=== PATIENT | male | born 1985 | race Caucasian/White ===

== ENCOUNTER 2021-07-25 03:57 | Inpatient (IN) ==
[2021-07-25] MEDS ORDERED: KETOROLAC TROMETHAMINE 15 MG/ML VIAL IV STA (04:14)
[2021-07-25] MEDS ORDERED: ONDANSETRON INJ 2 MG/ML 2 ML VIAL IV STA (04:14)
[2021-07-25] MEDS ORDERED: HYDROmorphone INJ 0.5 MG/0.5 ML SYR IV STA ×3 (04:14→06:50)
[2021-07-25] MEDS ORDERED: SODIUM CHLORIDE 0.9% 1000ML 1,000 ML IV STA (04:14)
--- NOTE | 2021-07-25 04:29 | Emergency Department Note ---
Impression & Plan Hydronephrosis with renal and ureteral calculus obstruction The case was discussed with the [facility]ist and they will evaluate for further management ED Provider Note NAME: JITENDRA CHISHOLM JR AGE: 36 SEX: M ARRIVES VIA: Walk-In INFORMANT: Patient ED PROVIDER(S): Deepthi Sahni DO CHIEF COMPLAINT: Right flank pain PLAN: Disposition: Evaluated by the [facility]ist Condition: Stable MEDICAL DECISION MAKING: This is a 36-year-old male patient with a history of kidney stones who presents to the emergency department with a sudden onset of right flank pain that radia celine into his groin. The patient began to vomit. Urinalysis was positive for blood. The patient went for CT scan of the abdomen/pelvis. This revealed a 3 mm right proximal ureteral stone with some a ssociated hydronephrosis. The patient was dosed with multiple doses of IV Dilaudid and Toradol along with IV Zofran. He received IV normal saline solution but the patient's pain persisted. I discussed the case with the [facility]ist service and they will evaluate for further management. Triage Nursing notes reviewed and agree with them. Additional history obtained from is at the bedside Prior medical records reviewed Vital Signs: reviewed and remarkable for hypertension Differential diagnosis: Ureteral colic; obstructive uropathy ER treatment provided: IV Dilaudid, IV Toradol, IV Zofran, IV normal saline Diagnostics interpreted by me: Laboratory studies: See below Imaging studies: As per stat read CT abdomen pelvis without contrast: Lung bases are clear. Heart unremarkable and liver intact. Gallbladder removed. Pancreas, spleen and adrenals are intact. Left kidney faint punctate nonobstructing stone. Right kidney punctate nonobstructing stone. Mild right hydronephrosis and proximal ureter secondary to a 3 mm stone in the proximal ureter. Bladder intact. Bowel loops are normal. Normal appendix. No adenopathy free fluid or free air. No acute findings in the bones. Impression mild right hydronephrosis and proximal ureter secondary to a proximal right ureteral stone 3 mm stone. Bilateral high nephrolithiasis HPI: 36/M arrives for evaluation of right flank pain. Patient awoke from sleep at 1:50 PM with severe right flank pain and nausea. The patient noted some symptoms earlier in the day that suggest that he may be suffering from a kidney stone. He does have a history of this. Patient did vomit multiple times on the way here to the hospital. ROS: See above HPI for pertinent positives & negatives. A total of 10 systems reviewed and were otherwise negative. PAST MEDICAL HISTORY:See Below PAST SURGICAL HISTORY:See Below FAMILY HISTORY:See Below SOCIAL HISTORY:See Below HOME MEDICATIONS:See list ALLERGIES:See list VITALS:See Below PHYSICAL EXAMINATION: HEENT: Head - normocephalic and atraumatic. Pupils are equal, round, and reactive to light. Extraocular eye muscles are intact, and sclera are anicteric. Nose - moist nasal mucosa without discharge. Mouth - moist buccal mucosa. Oropharynx is nonerythematous and there is no tonsillar exudate or edema noted. Neck: Supple; no cervical lymphadenopathy noted Heart: Regular rate and rhythm. There is a normal S1 and S2 with no murmurs, clicks, or gallops appreciated. Lungs: Clear to auscultation bilaterally with no wheezes, rales, or rhonchi. Abdomen: Soft, completely nontender, nondistended, with good bowel sounds. There are no palpable pulsatile masses or hepatosplenomegaly. There is no guarding, rigidity, or rebound noted. Extremities: No evidence of cyanosis, clubbing, or edema. There are easily palpable peripheral pulses. Skin: warm and dry with good turgor and no rashes. ED COURSE: Times/Reassessments: 0405: Patient was evaluated in room B 10. A complete history and physical was performed. An IV lock was initiated and labs were drawn as above. He was given 30 mg of IV Toradol, 4 mg of IV Zofran and 1 mg of IV Dilaudid for his pain. He will go for CT scan of the abdomen pelvis. The patient had persistent pain received a second dose of IV Dilaudid. Reviewed the results of the CT and laboratory studies with the patient and his . The patient's pain continued. He received additional doses of IV Toradol and IV Dilaudid. The patient's pain persisted and I discussed the case with the [facility] for further inpatient care. Deepthi Sahni DO Past Med/Surg History Medical History (Updated 07/25/21 @ 06:12 by Deepthi Sahni DO) Anxiety GERD (gastroesophageal reflux disease) Hyperlipidemia IBS (irritable bowel syndrome) Insomnia Kidney stone Lactose intolerance Migraine Teeth grinding Trigeminal neuralgia LEFT SIDE OF FACE Surgical History H/O knee surgery LEFT KNEE History of cholecystectomy History of colonoscopy History of cystoscopy STENT PLACED History of esophagogastroduodenoscopy (EGD) History of lithotripsy S/P LASIK surgery of both eyes [place] teeth removed Family History Mother Family history of diabetes mellitus Grandfather (Paternal) Family history of diabetes mellitus Family history of esophageal cancer Social History Smoking Status: Never smoker Tobacco Type: Smokeless Tobacco (Dip or Chew) Second Hand Exposure: Yes (RARE EXPOSURE); Hx Alcohol Use: No Hx Substance Use: No Preferred Language: Samoan Communication Ability: Effective Checker In Required: No Beliefs That Will Affect Care: None Current Living Situation: Family Feels Safe at Home: Yes Assistive Devices: None Allergies Allergies Allergy/AdvReac Type Severity Reaction Status Date / Time Penicillins Allergy Intermediate HIVES Verified 01/04/20 22:28 milk AdvReac Intermediate intolerance Verified 01/04/20 22:28 codeine AdvReac Mild N/V Verified 01/04/20 22:28 Home Meds Home Medications Medication Instructions Recorded Confirmed omeprazole 20 mg capsule,delayed 20 mg PO QAM 10/01/18 01/04/20 release hdokwvy-jgisqadvlvoho-ecweijad 250 2 tab PO Q6H PRN 05/05/19 01/04/20 mg-250 mg-65 mg tablet (Excedrin Extra Strength) Previous Rx's Medication Instructions Recorded erythromycin 5 mg/gram (0.5 %) eye 1 appln OPR Q6H #3.5 gm 01/05/20 ointment oxycodone-acetaminophen 5 mg-325 1 tab PO TID PRN #14 tab 03/31/20 mg tablet (Percocet) tamsulosin 0.4 mg capsule (Flomax) 0.4 mg PO HS #90 cap 05/05/21 Results & Data (ED) Vital Signs Vital Signs - 24 hr 07/25/21 03:58 07/25/21 04:32 07/25/21 05:00 Temperature 36.4 C L Temperature Source Oral Pulse Rate 59 L 48 L 52 L Pulse Rate from SpO2 Sensor 50 L 52 L Respiratory Rate 20 7 L 19 Respiratory Effort / Characteristics Non-Labored Spontaneous Respiratory Depth Normal Respiratory Pattern Regular Blood Pressure 139/103 H 138/85 134/87 Blood Pressure Mean 115 102 102 Blood Pressure Position Sitting Pulse Oximetry 97 95 92 Oxygen Delivery Method Room Air Room Air Room Air Sepsis Recent Fever Within 48 Hours No Sepsis New/Unexplained Change in Mental Status No Sepsis Action Taken by Nursing No Action Required Laboratory Data Result diagrams: 07/25/21 04:20 07/25/21 04:20 Lab Results 07/25/21 07/25/21 07/25/21 Range/Units 04:20 04:20 04:20 WBC 10.98 H (4.8-10.8) K/uL RBC 4.99 (4.7-6.1) M/uL Hgb 15.9 (14.0-18.0) g/dL Hct 46.1 (42-52) % MCV 92.4 (80-100) fL MCH 31.9 (25-34) pg MCHC 34.5 (32-36) g/dL RDW Std Deviation 45.7 (36.4-46.3) fL RDW Coeff of Lien 13.4 (11.5-14.5) % Plt Count 225 (130-400) K/uL MPV 10.8 H (7.4-10.4) fL Immature Gran % (Auto) 0.1 % Neut % (Auto) 78.3 % Lymph % (Auto) 14.7 % [place] % (Auto) 6.4 % Eos % (Auto) 0.2 % Baso % (Auto) 0.3 % Neut # (Auto) 8.61 H (1.4-6.5) K/uL Lymph # (Auto) 1.61 (1.2-3.4) K/uL [place] # (Auto) 0.70 H (0.11-0.59) K/uL Eos # (Auto) 0.02 (0-0.5) K/uL Baso # (Auto) 0.03 (0-0.2) K/uL Immature Gran # (Auto) 0.01 (0.00-0.02) K/uL Sodium 139 (136-145) mmol/L Potassium 4.0 (3.5-5.1) mmol/L Chloride 110 H (98-107) mmol/L Carbon Dioxide 21 (21-32) mmol/L Anion Gap 8.0 (3-11) BUN 22 H (7-18) mg/dl Creatinine 1.25 (0.6-1.4) mg/dl Est Cr Clr Drug Dosing 105.6 ml/min Est GFR ( Amer) 84.1 ml/min Est GFR (Non-Af Amer) 72.6 ml/min BUN/Creatinine Ratio 17.8 (10-20) Glucose 120 H (70-99) mg/dl Calcium 9.4 (8.5-10.1) mg/dl Total Bilirubin 0.5 (0.2-1) mg/dl AST 17 (15-37) U/L ALT 38 (12-78) Alkaline Phosphatase 108 D (45-117) U/L Total Protein 7.9 (6.4-8.2) gm/dl Albumin 4.1 (3.4-5.0) gm/dl Globulin 3.8 (2.5-4.0) gm/dl Albumin/Globulin Ratio 1.1 (0.9-2) Lipase 129 (73-393) U/L Urine Color [place] Urine Appearance Cloudy A (Clear) Urine pH 5.0 (4.5-7.5) Ur Specific [place] 1.031 H (1.000-1.030) Urine Protein 2+ H (Negative) Urine Glucose (UA) Negative (Negative) Urine Ketones Negative (Negative) Urine Blood 3+ H (Negative) Urine Nitrite Negative (Negative) Urine Bilirubin Negative (Negative) Urine Urobilinogen Negative (Negative) Ur Leukocyte Esterase Trace H (Negative) Urine WBC (Auto) 1-5 (0-5) /hpf Urine RBC (Auto) >30 H (0-4) /hpf U Hyaline Cast (Auto) 1-5 (0-5) /lpf U Epithel Cells (Auto) 5-10 H (0-5) /lpf Urine Bacteria (Auto) Negative (Negative) Administered Medications Discontinued Medications Hydromorphone HCl (Hydromorphone Inj 0.5 Mg/0.5 Ml Syr) 1 mg IV NOW STA Stop: 07/25/21 04:15 Last Admin: 07/25/21 04:23 Dose: 1 mg Documented by: [id number] Hydromorphone HCl (Hydromorphone Inj 0.5 Mg/0.5 Ml Syr) 0.5 mg IV NOW STA Stop: 07/25/21 05:27 Last Admin: 07/25/21 05:41 Dose: 0.5 mg Documented by: [id number] Sodium Chloride (Nss 1000ml) 1,000 mls @ 999 mls/hr IV .Q1H1M STA Stop: 07/25/21 05:14 Last Infusion: 07/25/21 05:37 Dose: 0 mls/hr Documented by: [id number] Admin: 07/25/21 04:36 Dose: 999 mls/hr Documented by: [id number] Ketorolac Tromethamine (Ketorolac Tromethamine 15 Mg/Ml Vial) 30 mg IV NOW STA Stop: 07/25/21 04:15 Last Admin: 07/25/21 04:20 Dose: 30 mg Documented by: [id number] Ketorolac Tromethamine (Ketorolac 30 Mg/Ml Vial) 30 mg IV NOW ONE Stop: 07/25/21 06:18 Last Admin: 07/25/21 06:27 Dose: 30 mg Documented by: [id number] Ondansetron HCl (Ondansetron Inj 2 Mg/Ml 2 Ml Vial) 4 mg IV NOW STA Stop: 07/25/21 04:15 Last Admin: 07/25/21 04:20 Dose: 4 mg Documented by: [id number] Discharge Plan Visit Data Chief Complaint: Flank Pain Stated Complaint: RT SIDE KIDNEY PAIN, VOMITING ED Provider: Deepthi Sahni Discharge Problem: Hydronephrosis with renal and ureteral calculus obstruction Forms Stand Alone Forms: [facility] Prescriptions Prescriptions: No Action oxycodone-acetaminophen [Percocet] 5-325 mg tablet 1 tab PO TID PRN (Reason: pain) Qty: 14 RF: 0 tamsulosin [Flomax] 0.4 mg capsule 0.4 mg PO HS Qty: 90 RF: 0 erythromycin 5 mg/gram (0.5 %) ointment 1 appln OPR Q6H Qty: 3.5 RF: 0 omeprazole 20 mg capsule,delayed release(DR/EC) 20 mg PO QAM RF: 0 Excedrin Extra Strength 250-250-65 mg Tablet 2 tab PO Q6H PRN (Reason: Pain) RF: 0 Referrals Referrals: Mp Gerardo MD [Primary Care Provider] -
[2021-07-25 04:36] LABS: Basophils # (auto) 0.03 K/uL (0-0.2); Basophils % (auto) 0.3 %; Eosinophils # (auto) 0.02 K/uL (0-0.5); Eosinophils % (auto) 0.2 %; Hematocrit (blood only) 46.1 % (42-52); Hemoglobin 15.9 g/dL (14.0-18.0); Immature Granulocytes # (auto) 0.01 K/uL (0.00-0.02); Immature Granulocytes % (auto) 0.1 %; Lymphocytes # (auto) 1.61 K/uL (1.2-3.4); Lymphocytes % (auto) 14.7 %; Mean Corpuscular Hemoglobin 31.9 pg (25-34); Mean Corpuscular Hgb Conc 34.5 g/dL (32-36); Mean Corpuscular Volume 92.4 fL (80-100); Mean Platelet Volume 10.8 fL (7.4-10.4); Monocytes % (auto) 6.4 %; Neutrophils # (auto) 8.61 K/uL (1.4-6.5); Neutrophils % (auto) 78.3 %; Platelet Count 225 K/uL (130-400); RDW Coefficient of Variation 13.4 % (11.5-14.5); RDW Standard Deviation 45.7 fL (36.4-46.3); Red Blood Count 4.99 M/uL (4.7-6.1); White Blood Count 10.98 K/uL (4.8-10.8)
[2021-07-25 04:48] LABS: Appearance Urine Cloudy (Clear); Bacteria Urine Automated Negative (Negative); Bilirubin Urine Negative (Negative); Blood Urine 3+ (Negative); Color Urine Orange; Glucose Urine UA Negative (Negative); Ketones Urine Negative (Negative); Leukocyte Esterase Urine Trace (Negative); Nitrite Urine Negative (Negative); Protein Urine 2+ (Negative); RBC Urine Automated >30 /hpf (0-4); Specific Gravity Urine 1.031 (1.000-1.030); Urobilinogen Urine Negative (Negative)
[2021-07-25 04:53] LABS: Albumin Level 4.1 gm/dl (3.4-5.0); BUN Creatinine Ratio 17.8 (10-20); Calcium 9.4 mg/dl (8.5-10.1); Creatinine Clr Calc Pharmacy 105.6 ml/min; Est GFR (African American) 84.1 ml/min; Est GFR (Non-African American) 72.6 ml/min
[2021-07-25 04:55] LABS: Albumin Globulin Ratio 1.1 (0.9-2); Bilirubin,Total 0.5 mg/dl (0.2-1); Globulin 3.8 gm/dl (2.5-4.0); Total Protein 7.9 gm/dl (6.4-8.2)
[2021-07-25] MEDS ORDERED: KETOROLAC 30 MG/ML VIAL IV ONE (06:17)
[2021-07-25] MEDS: SODIUM CHLORIDE 0.9% 500 ML IV SCH ×2 (07:24→12:22)
--- NOTE | 2021-07-25 08:14 | CT Scan Report ---
CT SCAN OF THE ABDOMEN AND PELVIS WITHOUT IV CONTRAST CLINICAL HISTORY: Right flank pain. COMPARISON STUDY: Abdominal CT dated 04/20/2021. TECHNIQUE: CT scan of the abdomen and pelvis is performed from the lung bases to the proximal femora. Images are reviewed in the axial, sagittal, and coronal planes. IV contrast was not administered for this examination. A dose lowering technique was utilized adhering to the principles of ALARA. CT DOSE: 1623.61 mGy.cm FINDINGS: Lung bases: The heart is normal in size and without pericardial effusion. The lung bases are clear no ting dependent atelectasis. There is a tiny hiatal hernia. Liver: The unenhanced liver is normal in size, contour, and attenuation. There is no intrahepatic bonny iary ductal dilatation. Gallbladder: Surgically absent noting clips in the gallbladder fossa. Spleen: Normal in size and attenuation. Pancreas: Unremarkable. Adrenal glands: Unremarkable. Kidneys: The unenhanced kidneys are normal in size. There is a 6 mm obstructing calculus in the right proximal ureter at the level of L3 seen on axial image #261. This causes mild to moderate right hydr oureteronephrosis. There are 2 additional nonobstructing right renal calculi which measure up to 3 mm . There are least 4 punctate nonobstructing left renal calculi which measure up to 2 mm. There is no left-sided hydronephrosis. There is no evidence of contour deforming renal mass lesion. Abdominal vasculature: The abdominal aorta is normal in course and caliber. Bowel: There is no bowel obstruction. The appendix is well-visualized and normal. Peritoneum: There is no intraperitoneal free air or abdominal ascites. There is a fat-containing umbi lical hernia. Lymphadenopathy: None. Pelvic viscera: The prostate gland is diminutive and heterogeneous. The bladder is decompressed and c annot be evaluated. Skeletal structures: No lytic or blastic lesions are seen. IMPRESSION: 1. There is a 6 mm obstructing calculus in the right proximal ureter. This causes mild to moderate ri ght hydroureteronephrosis. 2. Additional nonobstructing renal calculi are seen bilaterally. 3. Additional findings as above. ACT 112: Negative or not required by law. Electronically signed by: River Reece M.D. 07/25/2021 8:13 AM
--- NOTE | 2021-07-25 08:24 | Urology Consultation ---
Date of Consultation July 25, 2021 Assessment & Plan (1) Hydronephrosis with renal and ureteral calculus obstruction: (2) Renal colic: 36yo M admitted with intractable right flank pain secondary to a 6mm proximal right ureteral stone with hydronephrosis - Plan of care reviewed with Dr. Muir, urologist intervention teacher. - Patient afebrile, nontoxic, lab work reviewed - creatinine 1.25, WBC 10.98 - CTAP reviewed and notable for a 6 mm obstructing calculus in the right proximal ureter causing mild to moderate right hydroureteronephrosis. - UA on admission w/o evidence of infection - Discussed options for acute stone management with cystoscopy and stent placement. Discussed outpatient options for conservative measures with max expulsion medical therapy. Discussed possible outpatient ESWL, KUB ordered. Risks/benefits of all procedures discussed. - Given his intractable right flank pain in the context of an obstructing 6mm proximal right ureteral stone, will proceed with OR for cystoscopy, right retrograde pyelogram and right stent placement. - Keep NPO for procedure. - Risks and benefits to be reviewed with patient by Dr. Muir. OR notified. - Preoperative chest xray and EKG ordered. - Covid testing negative. - Will cover with IV Ciprofloxacin preoperatively. - Continue supportive care and pain management per primary service. - Will continue to follow. History of Present Illness Reason for Consultation: ureteral stone History of Present Illness 36yo M with a past medical history including nephrolithiasis, GERD, insomnia, knee surgery, cholecystectomy admitted with intractable right flank pain secondary to a 6mm proximal right ureteral stone with hydronephrosis. Pt presented to [facility] with complaints of sudden onset of right flank pain with associated nausea and vomiting. He states over the past 2 to 3 days he felt the sensation he tends to get prior to having a stone and therefore started taking flomax for the past 2-3 days. Last evening he developed severe right flank pain radiating to his right testicle. He had 2-3 episodes of vomiting in route to ER. On presentation, he was afebrile and remained hemodynamically stable. Lab work notable for mild leukocytosis at 10.98k, mild elevation of creatinine from baseline 1.25, and urinalysis consistent with microscopic hematuria, proteinuria, trace leukocyte esterase, negative nitrite, and negative bacteria. CT abdomen pelvis revealed a 6 mm obstructing calculus in the right proximal ureter resulting in mild to moderate right hydronephrosis. He received IVF and IV analgesia while in ED. Our service is consulted for right ureteral stone. CT abdomen pelvis IMPRESSION: 1. There is a 6 mm obstructing calculus in the right proximal ureter. This causes mild to moderate right hydroureteronephrosis. 2. Additional nonobstructing renal calculi are seen bilaterally. 3. Additional findings as above. Patient is known to the [facility] urology for history of stones with surgical intervention including ESWL and ureteroscopy in the past. Pt reports tolerating a ureteral stent in the past with minimal bother. Patient examined at bedside in the ED. Awake and alert. Pleasant. No acute distress. He reports right flank pain radiating to his right testicle, currently rates pain at 6/10. Denies fevers or chills. Some nausea and had 2-3 episodes of vomiting in route to the ER. Reports dysuria. Denies hematuria. Feels he is emptying his bladder, though reports decreased frequency. No urgency or hesitancy. Stream ok. He has had nothing to eat or drink since yesterday evening. Allergies Allergy/AdvReac Type Severity Reaction Status Date / Time Penicillins Allergy Intermediate HIVES Verified 07/25/21 07:52 milk AdvReac Intermediate intolerance Verified 07/25/21 07:52 codeine AdvReac Mild N/V Verified 07/25/21 07:52 Home Medications Medication Instructions Recorded Confirmed Type omeprazole 20 mg capsule,delayed 20 mg PO QAM 10/01/18 07/25/21 History release xgkrwwy-ennsapnfowcst-jqrjnpbr 250 2 tab PO Q6H PRN 05/05/19 07/25/21 History mg-250 mg-65 mg tablet (Excedrin Extra Strength) tamsulosin 0.4 mg capsule (Flomax) 0.4 mg PO HS #90 cap 05/05/21 07/25/21 Rx buspirone 5 mg tablet 5 mg PO BID 07/25/21 07/25/21 History citalopram 10 mg tablet 10 mg PO DAILY 07/25/21 07/25/21 History phentermine 15 mg capsule 15 mg PO DAILY 07/25/21 07/25/21 History topiramate 25 mg capsule,extended 25 mg PO DAILY 07/25/21 07/25/21 History release 24 hr (Trokendi XR) trazodone 100 mg tablet 100 mg PO HS 07/25/21 07/25/21 History Patient History Medical History Anxiety GERD (gastroesophageal reflux disease) Hyperlipidemia IBS (irritable bowel syndrome) Insomnia Kidney stone Lactose intolerance Migraine Obesity Teeth grinding Trigeminal neuralgia LEFT SIDE OF FACE Surgical History H/O knee surgery LEFT KNEE History of cholecystectomy History of colonoscopy History of cystoscopy STENT PLACED History of esophagogastroduodenoscopy (EGD) History of lithotripsy S/P LASIK surgery of both eyes [place] teeth removed Family History Mother Family history of diabetes mellitus Grandfather (Paternal) Family history of diabetes mellitus Family history of esophageal cancer Social History Smoking Status: Never smoker Tobacco Type: Smokeless Tobacco (Dip or Chew) Second Hand Exposure: Yes (RARE EXPOSURE); Hx Alcohol Use: No Hx Substance Use: No Preferred Language: Lithuanian Communication Ability: Effective Proteomics Scientist Required: No Beliefs That Will Affect Care: None Current Living Situation: Family Feels Safe at Home: Yes Assistive Devices: None Review of Systems Review of Systems: All systems reviewed & are unremarkable except as noted in HPI & below Physical Exam Constitutional: well developed and well nourished; no acute distress Neck: normal visual inspection Respiratory: normal respiratory effort and able to speak in complete sentences; no labored breathing and no audible wheezes Cardiovascular: Extremities: no calf tenderness Gastrointestinal (Abdomen): Inspection/Auscultation: abdomen normal to inspection; abdomen not distended Musculoskeletal: Head/Neck/Chest: normocephalic Skin: No visible rashes or lesions to exposed skin areas Neurologic: moves all extremities and awake Psychiatric: Orientation: alert, oriented x 3 and cooperative Genitourinary: + CVA tenderness (mild right tenderness ) Results & Data ([facility]) Vital Signs (Past 12 Hours) Vital Signs Temp Pulse Resp BP Pulse Ox 07/25/21 05:00 52 L 19 134/87 92 07/25/21 04:32 48 L 7 L 138/85 95 07/25/21 03:58 36.4 C L 59 L 20 139/103 H 97 PG Care Time/CCT Total # of Minutes Spent Total Time Spent with Patient: Total time spent is greater than 50% in coordination of care (as documented) at patient's floor/unit and/or counseling patient: Coding Level of Care Code 93881 Inpt Consult Level 4 Diagnoses Hydronephrosis with renal and ureteral calculus obstruction N13.2 Renal colic N23
[2021-07-25] MEDS ORDERED: HYDROCODONE/ACETAMOPHEN 5/325MG TAB PO STA (08:31)
[2021-07-25] MEDS ORDERED: HYDROCODONE/ACETAMOPHEN 5/325MG TAB PO ONE (08:42)
--- NOTE | 2021-07-25 08:50 | History & Physical Report ---
Date of Service July 25, 2021 Assessment & Plan (1) Hydronephrosis with renal and ureteral calculus obstruction: (2) Renal colic: Plan: This is a 36-year-old male who has significant past medical history of nephrolithiasis, depression with anxiety, trigeminal neuralgia status post surgical cranial nerve decompression, insomnia, GERD who presents to ED secondary to right flank pain that started at 1:45 AM. 6 mm obstructing calculus in right proximal ureter resulting in mild to moderate right hydroureteronephrosis Renal colic Admit to medical Consult urology Keep n.p.o. until evaluated by urology IV hydromorphone for severe pain as needed, as needed Toradol As needed [place] Strain all urine IV LR at 150 an hour Continue Flomax daily UA w/o evidence of infection, afebrile - will hold on antibiotics for now baseline cr 1.0, cr 1.25 today Depression with anxiety Insomnia Continue BuSpar, citalopram and trazodone Mood stable Migraine Appetite suppression Currently on Topamax and phentermine Hold Phentermine while inpatient DVT ppx: SCD/TEDS, encourage ambulation Dispo:med/surg PCP: Akin FULL CODE Pt was seen and examined in collaboration with Dr. Andres, please see addendum The chart was completed utilizing [employer] Speech voice recognition software. Grammatical errors, random word insertions, pronoun errors, and incomplete sentences are an occasional consequence of this system due to software limitations, ambient noise, and hardware issues. Any formal questions or concerns about the content, text, or information contained within the body of this dictation should be directly addressed to the provider for clarification. History of Present Illness Chief Complaint: R flank pain since 1:45 a.m. Primary Care Provider: Mp Gerardo MD This is a 36-year-old male who has significant past medical history of nephrolithiasis, depression with anxiety, trigeminal neuralgia status post surgical cranial nerve decompression, insomnia, GERD who presents to ED secondary to right flank pain that started at 1:45 AM. He states over the past 2 to 3 days he felt, "off." He tends to get a sensation prior to having a kidney stone and therefore started taking Flomax for the past 2 to 3 days. Last evening he started to develop some discomfort in his right flank and unfortunately got awoken at approximately 145 with severe right flank pain radiating to his right testicle. He describes pain as sharp, nothing makes better, nothing makes worse, compared to prior kidney stone pain and is associated with nausea and vomiting. He had 2-3 episodes of vomiting in route to ER. He did receive IV hydromorphone and Toradol in ED and states this improved his pain minimally. Currently pain is a 7 out of 10. He complains of chills but denies fever or sweats. He denies lightheadedness, dizziness, chest pain, shortness of breath, cough, dysuria, hematuria, increased urgency or frequency with urination, melena or hematochezia. He does complain of decreased urinary frequency and tends to have loose bowels. He does have prior history of kidney stone requiring ESWL. He states his prior kidney stone was not analyzed due to inability to obtain proper sample. In ED patient remained hemodynamically stable. Lab work notable for mild leukocytosis at 10.98k, mild elevation of creatinine 1.25 urinalysis consistent with microscopic hematuria, proteinuria, trace leukocyte esterase and negative bacteria. CT abdomen pelvis revealed a 6 mm obstructing calculus in the right proximal ureter resulting in mild to moderate right hydronephrosis. He received IVF and IV analgesia while in ED. Allergies Allergy/AdvReac Type Severity Reaction Status Date / Time Penicillins Allergy Intermediate HIVES Verified 07/25/21 07:52 milk AdvReac Intermediate intolerance Verified 07/25/21 07:52 codeine AdvReac Mild N/V Verified 07/25/21 07:52 Home Medications Medication Instructions Recorded Confirmed Type omeprazole 20 mg capsule,delayed 20 mg PO QAM 10/01/18 07/25/21 History release gffpzqw-atzkkgptccrct-hihiwooo 250 2 tab PO Q6H PRN 05/05/19 07/25/21 History mg-250 mg-65 mg tablet (Excedrin Extra Strength) tamsulosin 0.4 mg capsule (Flomax) 0.4 mg PO HS #90 cap 05/05/21 07/25/21 Rx buspirone 5 mg tablet 5 mg PO BID 07/25/21 07/25/21 History citalopram 10 mg tablet 10 mg PO DAILY 07/25/21 07/25/21 History phentermine 15 mg capsule 15 mg PO DAILY 07/25/21 07/25/21 History topiramate 25 mg capsule,extended 25 mg PO DAILY 07/25/21 07/25/21 History release 24 hr (Trokendi XR) trazodone 100 mg tablet 100 mg PO HS 07/25/21 07/25/21 History Past Med/Surg History Medical History Anxiety GERD (gastroesophageal reflux disease) Hyperlipidemia IBS (irritable bowel syndrome) Insomnia Kidney stone Lactose intolerance Migraine Obesity Teeth grinding Trigeminal neuralgia LEFT SIDE OF FACE Surgical History H/O knee surgery LEFT KNEE History of cholecystectomy History of colonoscopy History of cystoscopy STENT PLACED History of esophagogastroduodenoscopy (EGD) History of lithotripsy S/P LASIK surgery of both eyes [place] teeth removed Family History Mother Family history of diabetes mellitus Grandfather (Paternal) Family history of diabetes mellitus Family history of esophageal cancer Social History Smoking Status: Never smoker Tobacco Type: Smokeless Tobacco (Dip or Chew) Second Hand Exposure: Yes (RARE EXPOSURE); Do You Dip or Chew Tobacco: Yes; Tobacco Cessation Education Requested by Patient: No Hx Alcohol Use: No Hx Substance Use: No Preferred Language: [place] Zealander Communication Ability: Effective Teacher Dramatics Required: No Beliefs That Will Affect Care: Restorationism Restorationism Beliefs: Confucianism Current Living Situation: Spouse and Family Other Information That Helps Us Care for You: No Feels Safe at Home: Yes Safety Concerns: Feels Safe At This Time Assistive Devices: None Review of Systems Review of Systems: All systems reviewed & are unremarkable except as noted in HPI & below Physical Exam Physical Exam: Constitutional: WD/WN, m< vitals as above, NAD, sitting up in bed, pleasant, conversing easily Head: Normocephalic, Atraumatic Eyes: PERRL, conjunctivae normal, anicteric sclerae ENMT: external ear and nose normal, oropharynx normal Neck: trachea midline, no thyromegaly normal visual inspection Respiratory: normal respiratory effort, lungs clear to auscultation, no wheeze, rales, rhonchi. Normal insp/exp effort, no accessory muscle use Cardiovascular: RRR, no murmur, no edema Vessels: no JVD or carotid bruit Chest: normal inspection of chest Abdomen: normal bowel sounds, soft, nontender, no hepatosplenomegaly Musculoskeletal: no cyanosis or clubbing, extremities motor strength 5/5 Skin: +tattoos, no rashes, warm and dry normal turgor Neurologic: PERRL, EOMI, accommodation nl, no face palsy, no dysarthria CN's II-XI intact bilaterally and moves all extremities Psychiatric: A+Ox3, euthymic affect Lymphatic: no cervical or axillary lymphadenopathy : deferred Results & Data Results & Data ([facility]) Vital Signs (Past 12 Hours) Vital Signs Temp Pulse Resp BP Pulse Ox 07/25/21 05:00 52 L 19 134/87 92 07/25/21 04:32 48 L 7 L 138/85 95 07/25/21 03:58 36.4 C L 59 L 20 139/103 H 97 Diagnostic Findings Abdomen/Pelvis CT 07/25/21 04:14 CT SCAN OF THE ABDOMEN AND PELVIS WITHOUT IV CONTRAST CLINICAL HISTORY: Right flank pain. COMPARISON STUDY: Abdominal CT dated 04/20/2021. TECHNIQUE: CT scan of the abdomen and pelvis is performed from the lung bases to the proximal femora. Images are reviewed in the axial, sagittal, and coronal planes. IV contrast was not administered for this examination. A dose lowering technique was utilized adhering to the principles of ALARA. CT DOSE: 1623.61 mGy.cm FINDINGS: Lung bases: The heart is normal in size and without pericardial effusion. The lung bases are clear noting dependent atelectasis. There is a tiny hiatal hernia. Liver: The unenhanced liver is normal in size, contour, and attenuation. There is no intrahepatic biliary ductal dilatation. Gallbladder: Surgically absent noting clips in the gallbladder fossa. Spleen: Normal in size and attenuation. Pancreas: Unremarkable. Adrenal glands: Unremarkable. Kidneys: The unenhanced kidneys are normal in size. There is a 6 mm obstructing calculus in the right proximal ureter at the level of L3 seen on axial image #261. This causes mild to moderate right hydroureteronephrosis. There are 2 additional nonobstructing right renal calculi which measure up to 3 mm. There are least 4 punctate nonobstructing left renal calculi which measure up to 2 mm. There is no left-sided hydronephrosis. There is no evidence of contour deforming renal mass lesion. Abdominal vasculature: The abdominal aorta is normal in course and caliber. Bowel: There is no bowel obstruction. The appendix is well-visualized and normal. Peritoneum: There is no intraperitoneal free air or abdominal ascites. There is a fat-containing umbilical hernia. Lymphadenopathy: None. Pelvic viscera: The prostate gland is diminutive and heterogeneous. The bladder is decompressed and cannot be evaluated. Skeletal structures: No lytic or blastic lesions are seen. IMPRESSION: 1. There is a 6 mm obstructing calculus in the right proximal ureter. This causes mild to moderate right hydroureteronephrosis. 2. Additional nonobstructing renal calculi are seen bilaterally. 3. Additional findings as above. ACT 112: Negative or not required by law. Electronically signed by: River Reece M.D. 07/25/2021 8:13 AM Medications Administered Medication List Sodium Chloride (Nss) 500 mls @ 125 mls/hr IV .Q4H BROOKE Stop: 08/24/21 06:59 Last Admin: 07/25/21 07:24 Dose: 125 mls/hr Documented by: [id number] Discontinued Medications Hydromorphone HCl (Hydromorphone Inj 0.5 Mg/0.5 Ml Syr) 1 mg IV NOW STA Stop: 07/25/21 04:15 Last Admin: 07/25/21 04:23 Dose: 1 mg Documented by: [id number] Hydromorphone HCl (Hydromorphone Inj 0.5 Mg/0.5 Ml Syr) 0.5 mg IV NOW STA Stop: 07/25/21 05:27 Last Admin: 07/25/21 05:41 Dose: 0.5 mg Documented by: [id number] Hydromorphone HCl (Hydromorphone Inj 0.5 Mg/0.5 Ml Syr) 0.5 mg IV NOW STA Stop: 07/25/21 06:51 Last Admin: 07/25/21 07:24 Dose: 0.5 mg Documented by: [id number] Sodium Chloride (Nss 1000ml) 1,000 mls @ 999 mls/hr IV .Q1H1M STA Stop: 07/25/21 05:14 Last Infusion: 07/25/21 05:37 Dose: 0 mls/hr Documented by: [id number] Admin: 07/25/21 04:36 Dose: 999 mls/hr Documented by: [id number] Ketorolac Tromethamine (Ketorolac Tromethamine 15 Mg/Ml Vial) 30 mg IV NOW STA Stop: 07/25/21 04:15 Last Admin: 07/25/21 04:20 Dose: 30 mg Documented by: [id number] Ketorolac Tromethamine (Ketorolac 30 Mg/Ml Vial) 30 mg IV NOW ONE Stop: 07/25/21 06:18 Last Admin: 07/25/21 06:27 Dose: 30 mg Documented by: [id number] Ondansetron HCl (Ondansetron Inj 2 Mg/Ml 2 Ml Vial) 4 mg IV NOW STA Stop: 07/25/21 04:15 Last Admin: 07/25/21 04:20 Dose: 4 mg Documented by: [id number] COVID-19 Results Results COVID-19 Adm Lab Results: RBC 4.99 M/uL (4.7-6.1) 07/25/21 WBC 10.98 K/uL (4.8-10.8) H 07/25/21 Hgb 15.9 g/dL (14.0-18.0) 07/25/21 Hct 46.1 % (42-52) 07/25/21 Plt Count 225 K/uL (130-400) 07/25/21 Neutrophils (%) (Auto) 78.3 % 07/25/21 Lymphocytes (%) (Auto) 14.7 % 07/25/21 Monocytes # (Auto) 0.70 K/uL (0.11-0.59) H 07/25/21 Eosinophils # (Auto) 0.02 K/uL (0-0.5) 07/25/21 Immature Granulocyte % (Auto) 0.1 % 07/25/21 Neutrophils # (Auto) 8.61 K/uL (1.4-6.5) H 07/25/21 Lymphocytes # (Auto) 1.61 K/uL (1.2-3.4) 07/25/21 Monocytes # (Auto) 0.70 K/uL (0.11-0.59) H 07/25/21 Eosinophils # (Auto) 0.02 K/uL (0-0.5) 07/25/21 Basophils # (Auto) 0.03 K/uL (0-0.2) 07/25/21 Immature Granulocyte # (Auto) 0.01 K/uL (0.00-0.02) 07/25/21 Na 139 mmol/L (136-145) 07/25/21 K 4.0 mmol/L (3.5-5.1) 07/25/21 Cl 110 mmol/L (98-107) H 07/25/21 CO2 21 mmol/L (21-32) 07/25/21 Anion Gap 8.0 (3-11) 07/25/21 BUN 22 mg/dl (7-18) H 07/25/21 Creatinine 1.25 mg/dl (0.6-1.4) 07/25/21 BUN/Creatinine Ratio 17.8 (10-20) 07/25/21 Glucose Level 120 mg/dl (70-99) H 07/25/21 Ca 9.4 mg/dl (8.5-10.1) 07/25/21 Total Bilirubin 0.5 mg/dl (0.2-1) 07/25/21 AST/SGOT 17 U/L (15-37) 07/25/21 ALT/SGPT 38 (12-78) 07/25/21 Alkaline Phosphatase 108 U/L (45-117) 07/25/21 Total Protein 7.9 gm/dl (6.4-8.2) 07/25/21 Albumin 4.1 gm/dl (3.4-5.0) 07/25/21 Globulin 3.8 gm/dl (2.5-4.0) 07/25/21 Albumin/Globulin Ratio 1.1 (0.9-2) 07/25/21 SARS-CoV-2, RNA, NAAT NEGATIVE (NEGATIVE) 07/25/21 Chest X-Ray 07/25/21 Code Status & VTE Plan Code Status FULL CODE VTE Prophylaxis Plan VTE Prophylaxis will be ordered: Yes Supervising Physician Co-Signing Physician Notes Attending addendum: The patient was seen and examined in medical floor He is a status post right ureteral stent placement for right ureteric stone He has been a little drowsy but denies any pain and/or nausea or vomiting He wants to go home On examination Lying in bed comfortably No apparent distress Hemodynamically stable with blood pressure on the lower side of normal at 107/74 Chest-clear to auscultate bilaterally Heart-S1, S2. Regular no murmur appreciated Abdomen-benign Extremities-negative for any edema His admission labs, EKG and imaging studies reviewed Right ureteral stone with mild hydronephrosis associated with renal colic Status post cystoscopy and right ureteric stent placement by the urologist The urologist advised that he could go home with a follow-up as an outpatient in the clinic The patient will have his supper and he will be ambulant before discharging home this afternoon/evening Agree with assessment and plan as outlined above by Mery Andres
[2021-07-25] MEDS ORDERED: CIPROFLOXACIN / D5W 400 MG/200 ML BAG IV SCH (10:05)
--- NOTE | 2021-07-25 10:43 | XRay Report ---
XR chest 1V portable HISTORY: 36 years-old Male pre op preoperative exam. COMPARISON: KUB and CT abdomen and pelvis studies of same day, chest radiograph 02/17/2019. TECHNIQUE: Portable AP view of the chest FINDINGS: The cardiac silhouette is upper limits of normal in size. Mild right hemidiaphragmatic elevation. The re is mild coarsening of the interstitium which is likely technical. No acute fracture. Cholecystecto my. IMPRESSION: No acute process. ACT 112: Negative or not required by law. The above report was generated using voice recognition software. It may contain grammatical, syntax o r spelling errors. Electronically signed by: Gregg Wynne M.D. 07/25/2021 10:41 AM
--- NOTE | 2021-07-25 10:46 | XRay Report ---
XR KUB/Abdomen 1 view CLINICAL HISTORY: renal calculi TECHNIQUE: 1 view of the abdomen was obtained. Comparison: Comparison is made to abdomen one view 04/11/2021 FINDINGS: Punctate stone in the right kidney superior pole is seen. The osseous structures are grossly unremark able. The bowel gas pattern is nonobstructive. A moderate amount of stool is noted within the large b owel. IMPRESSION: Stable punctate stone in the right kidney superior pole. ACT 112: Negative or not required by law. Electronically signed by: Ian Nicholas M.D. 07/25/2021 10:44 AM
[2021-07-25] MEDS ORDERED: ACETAMINOPHEN 325 MG TAB PO PRN (11:07)
[2021-07-25] MEDS ORDERED: KETOROLAC 30 MG/ML VIAL IV PRN (11:07)
[2021-07-25] MEDS ORDERED: MAGNESIUM HYDROXIDE SUSP 30 ML UDC PO PRN (11:07)
[2021-07-25] MEDS ORDERED: ALUMINUM/MAGNESIUM SUSP 30 ML UDC PO PRN (11:07)
[2021-07-25] MEDS ORDERED: ONDANSETRON INJ 2 MG/ML 2 ML VIAL IV PRN ×2 (11:07→12:05)
[2021-07-25] MEDS ORDERED: POLYETHYLENE (MIRALAX) 17 GM PACK PO PRN (11:07)
[2021-07-25] MEDS: LACTATED RINGER'S 1,000 ML IV SCH ×2 (11:42→16:37)
[2021-07-25] MEDS ORDERED: LABETALOL HCL IV 5 MG/ML 20ML IV PRN (12:05)
[2021-07-25] MEDS ORDERED: HYDROmorphone INJ 1 MG/ML SYRINGE IV PRN (12:05)
[2021-07-25] MEDS ORDERED: ePHEDrine sulfate 50 MG/ML AMP IV PRN (12:05)
[2021-07-25] MEDS ORDERED: PHENYLEPHRINE 100MCG/ML 5ML SYR IV PRN (12:05)
[2021-07-25] MEDS ORDERED: ATROPINE SULFATE 0.1 MG/ML 10ML SYR IV PRN (12:05)
--- NOTE | 2021-07-25 12:06 | Anesthesiology Consultation ---
Date of Service July 25, 2021 Assessment & Plan (1) Encounter for pre-operative examination: Chart Review Chart Review: Acceptable Risk for Surgery and Patient NOT seen in Pre Admission Testing Consults Requested none History Surgery Operation Date: 07/25/21 14:15 Proposed Procedures p Cystoscopy, Right Ureteral Stent Insertion - Dion Muir MD Height/Weight Height: 5 ft 11 in Weight: 119.9 kg Allergies Allergy/AdvReac Type Severity Reaction Status Date / Time Penicillins Allergy Intermediate HIVES Verified 07/25/21 07:52 milk AdvReac Intermediate intolerance Verified 07/25/21 07:52 codeine AdvReac Mild N/V Verified 07/25/21 07:52 Medications Home Medications Medication Instructions Recorded Confirmed Last Taken omeprazole 20 mg capsule,delayed 20 mg PO QAM 10/01/18 07/25/21 01/04/20 release hhskchn-auxgbtoyumefq-vgglfnpf 250 2 tab PO Q6H PRN 05/05/19 07/25/21 07/25/21 02:30 mg-250 mg-65 mg tablet (Excedrin Extra Strength) tamsulosin 0.4 mg capsule (Flomax) 0.4 mg PO HS #90 cap 05/05/21 07/25/21 Unknown buspirone 5 mg tablet 5 mg PO BID 07/25/21 07/25/21 Unknown citalopram 10 mg tablet 10 mg PO DAILY 07/25/21 07/25/21 Unknown phentermine 15 mg capsule 15 mg PO DAILY 07/25/21 07/25/21 Unknown topiramate 25 mg capsule,extended 25 mg PO DAILY 07/25/21 07/25/21 Unknown release 24 hr (Trokendi XR) trazodone 100 mg tablet 100 mg PO HS 07/25/21 07/25/21 Unknown Active Medications Generic Name Dose Route Start Last Admin Trade Name Freq PRN Reason Stop Dose Admin Lactated Ringer's 1,000 mls @ 150 mls/hr 07/25/21 11:07 07/25/21 11:42 Lr IV 07/26/21 00:26 150 mls/hr .Q6H40M BROOKE Administration Past Medical History Medical History Anxiety GERD (gastroesophageal reflux disease) Hyperlipidemia IBS (irritable bowel syndrome) Insomnia Kidney stone Lactose intolerance Migraine Obesity Teeth grinding Trigeminal neuralgia LEFT SIDE OF FACE Past Family History Family History Mother Family history of diabetes mellitus Grandfather (Paternal) Family history of diabetes mellitus Family history of esophageal cancer Past Surgical History Surgical History H/O knee surgery LEFT KNEE History of cholecystectomy History of colonoscopy History of cystoscopy STENT PLACED History of esophagogastroduodenoscopy (EGD) History of lithotripsy S/P LASIK surgery of both eyes [place] teeth removed Social History Smoking Status: Never smoker tobacco type: smokeless tobacco Hx Alcohol Use: No Hx Substance Use: No substance use type: does not use Physical Exam Vital Signs Last Vital Signs Temp 36.4 C L 07/25/21 03:58 Pulse 59 L 07/25/21 11:06 Resp 18 07/25/21 11:06 BP 136/85 07/25/21 11:06 Pulse Ox 98 07/25/21 11:06 Testing Laboratory Results 07/25/21 04:20 07/25/21 04:20 Urine Color [place] 07/25/21 04:20 Urine Appearance Cloudy (Clear) A 07/25/21 04:20 Urine pH 5.0 (4.5-7.5) 07/25/21 04:20 Ur Specific [place] 1.031 (1.000-1.030) H 07/25/21 04:20 Urine Protein 2+ (Negative) H 07/25/21 04:20 Urine Glucose (UA) Negative (Negative) 07/25/21 04:20 Urine Ketones Negative (Negative) 07/25/21 04:20 Urine Nitrite Negative (Negative) 07/25/21 04:20 Ur Leukocyte Esterase Trace (Negative) H 07/25/21 04:20 Urine WBC (Auto) 1-5 /hpf (0-5) 07/25/21 04:20 Urine RBC (Auto) >30 /hpf (0-4) H 07/25/21 04:20 U Hyaline Cast (Auto) 1-5 /lpf (0-5) 07/25/21 04:20 U Epithel Cells (Auto) 5-10 /lpf (0-5) H 07/25/21 04:20 Urine Bacteria (Auto) Negative (Negative) 07/25/21 04:20
[2021-07-25] MEDS ORDERED: PROPOFOL IV EMULSION 10 MG/ML 20 ML VIAL IV ONE (12:08)
[2021-07-25] MEDS ORDERED: MIDAZOLAM HCL 1 MG/ML 2ML VIAL ONE (12:09)
[2021-07-25] MEDS ORDERED: fentaNYL citrate 100 MCG/2 ML VIAL ONE (12:09)
[2021-07-25] MEDS ORDERED: KETAMINE 50 MG/5 ML SYRINGE ONE (13:05)
[2021-07-25] MEDS ORDERED: GLYCOPYRROLATE 0.2 MG/ML VIAL ONE (13:06)
--- NOTE | 2021-07-25 13:25 | Operative Report ---
PG Post Operative Report Pre & Post Diagnosis Operation Date: 07/25/21 14:15 Pre: Right ureteral stone Post: Right ureteral stone I identified the patient and participated in the time-out.: Yes Procedure Operation Date: 07/25/21 14:15 Procedure: cystoscopy, right ureteral stent placement Surgeon Nathan Muir MD Senior Climate Advisor none Estimated Blood Loss 0 Findings Consistent with Post-Op Diagnosis Specimens none Description of Procedure The patient was identified in the preoperative holding area, appropriate informed consents were reviewed and completed and the patient was transferred to the operative suite. Upon arrival, appropriate antibiotics and anesthesia were administered and the patient was placed in dorsal lithotomy position and prepped and draped in sterile fashion. To begin the case I passed a 22 Yoruba cystoscope with 30 degree lens. Inspection revealed a healthy-appearing urethra and prostate. His bladder was also very healthy. I cannulated the right UO with a sensor wire which advanced the kidney without difficulty. I then placed a 6 Yoruba by 26 cm stent with a good curl in the kidney and the bladder. There was good drainage through and around the stent. The case was concluded, his bladder was emptied. He was reversed of anesthesia and taken to the recovery room in stable condition. I attest to the content of the Intraoperative Record and any orders documented therein. Any exceptions are noted below.
[2021-07-25] MEDS ORDERED: DIATRIZOATE MEGLUMINE 30% 100ML VIAL INSTIL ONE (13:37)
--- NOTE | 2021-07-25 13:43 | Anesthesiology Progress Note ---
Date of Service July 25, 2021 Anesthesia Post Procedure Vital Signs Vital Signs: Temp Pulse Pulse Pulse Resp BP BP 07/25/21 13:30 36.4 C L 70 12 115/83 07/25/21 12:44 36.8 C 55 L 20 126/75 07/25/21 11:50 36.6 C 52 L 12 123/77 07/25/21 11:06 59 L 18 136/85 07/25/21 10:00 54 L 13 07/25/21 09:30 54 L 19 07/25/21 09:00 50 L 15 07/25/21 08:30 60 18 07/25/21 08:00 60 13 07/25/21 07:30 66 19 07/25/21 07:00 58 L 17 07/25/21 06:30 69 20 07/25/21 06:00 62 19 07/25/21 05:30 61 16 07/25/21 05:00 52 L 19 134/87 07/25/21 04:32 48 L 7 L 138/85 07/25/21 03:58 36.4 C L 59 L 20 139/103 H Pulse Ox 07/25/21 13:30 99 07/25/21 12:44 98 07/25/21 11:50 94 07/25/21 11:06 98 07/25/21 10:00 94 07/25/21 09:30 96 07/25/21 09:00 95 07/25/21 08:30 97 07/25/21 08:00 92 07/25/21 07:30 96 07/25/21 07:00 94 07/25/21 06:30 96 07/25/21 06:00 90 07/25/21 05:30 95 07/25/21 05:00 92 07/25/21 04:32 95 07/25/21 03:58 97 Pain Intensity Flank: Pain Intensity: 2 Transfer of Care Handoff Completed per policy Notes Mental Status: alert / awake / arousable Patient Amnestic to Procedure: Yes Nausea / Vomiting: adequately controlled Pain: adequately controlled Airway Patency, RR, SpO2: stable & adequate BP & HR: stable & adequate Hydration State: stable & adequate Anesthetic Complications: no major complications apparent and Pt Satisfied with anesthetic care
[2021-07-25] MEDS: fentaNYL citrate 100 MCG/2 ML VIAL IV PRN ×2 (13:49→13:54)
--- NOTE | 2021-07-25 13:56 | Fluoroscopy Report ---
FL KUB CLINICAL HISTORY: RIGHT CYSTO STENT TECHNIQUE: 1 views were obtained with the C-arm in the OR with the above procedure. Total fluoroscopy time was 5.3 seconds. Total skin dose was 1.92 mGy. Comparison: None available at the time of this dictation. FINDINGS/IMPRESSION: Intraoperative images were obtained of right-sided stent placement. Please correlate with intraoperative fluoroscopy and operative report. ACT 112: Negative or not required by law. Electronically signed by: Ian Nicholas M.D. 07/25/2021 1:55 PM
[2021-07-25] MEDS: HYDROmorphone INJ 0.5 MG/0.5 ML SYR IV PRN ×2 (16:40→20:33)
[2021-07-25] MEDS ORDERED: TAMSULOSIN HCL 0.4 MG CAP PO SCH (21:00)
[2021-07-25] MEDS ORDERED: traZODone HCL 100 MG TAB PO SCH (21:00)
[2021-07-25] MEDS: busPIRone 5 MG TAB PO SCH (21:06)
[2021-07-25] MEDS: HYDROCODONE/ACETAMOPHEN 5/325MG TAB PO PRN (22:20)
[2021-07-26] MEDS: HYDROmorphone INJ 0.5 MG/0.5 ML SYR IV PRN ×2 (02:36→06:26)
[2021-07-26] MEDS: HYDROCODONE/ACETAMOPHEN 5/325MG TAB PO PRN ×2 (04:15→08:21)
[2021-07-26 07:07] LABS: Basophils # (auto) 0.02 K/uL (0-0.2); Basophils % (auto) 0.3 %; Eosinophils # (auto) 0.14 K/uL (0-0.5); Eosinophils % (auto) 2.3 %; Hematocrit (blood only) 42.8 % (42-52); Hemoglobin 14.1 g/dL (14.0-18.0); Immature Granulocytes # (auto) 0.01 K/uL (0.00-0.02); Immature Granulocytes % (auto) 0.2 %; Lymphocytes # (auto) 2.48 K/uL (1.2-3.4); Lymphocytes % (auto) 41.6 %; Mean Corpuscular Hemoglobin 31.2 pg (25-34); Mean Corpuscular Hgb Conc 32.9 g/dL (32-36); Mean Corpuscular Volume 94.7 fL (80-100); Mean Platelet Volume 10.5 fL (7.4-10.4); Monocytes # (auto) 0.48 K/uL (0.11-0.59); Monocytes % (auto) 8.1 %; Neutrophils # (auto) 2.83 K/uL (1.4-6.5); Neutrophils % (auto) 47.5 %; Platelet Count 191 K/uL (130-400); RDW Coefficient of Variation 13.5 % (11.5-14.5); Red Blood Count 4.52 M/uL (4.7-6.1); White Blood Count 5.96 K/uL (4.8-10.8)
[2021-07-26 07:33] LABS: BUN Creatinine Ratio 13.2 (10-20); Calcium 8.9 mg/dl (8.5-10.1); Creatinine Clr Calc Pharmacy 108.2 ml/min; Est GFR (African American) 86.6 ml/min; Est GFR (Non-African American) 74.7 ml/min; Potassium 3.9 mmol/L (3.5-5.1)
--- NOTE | 2021-07-26 07:56 | Urology Progress Note ---
Date of Service July 26, 2021 Assessment & Plan (1) Calculus of proximal right ureter: (2) S/P ureteral stent placement: Admission and Anticipated Discharge Date Admission Date: July 25, 2021 Subjective POD #1 s/p cystoscopy and right stent placement. Results & Data ([facility]) Vital Signs (Past 12 Hours) Vital Signs Temp Pulse Resp BP Pulse Ox 07/26/21 07:40 36.8 C 84 16 128/82 94 07/26/21 03:00 36.7 C 73 16 135/69 92 07/25/21 23:26 36.8 C 65 16 126/70 93 PG Care Time/CCT Total # of Minutes Spent Total Time Spent with Patient: Total time spent is greater than 50% in coordination of care (as documented) at patient's floor/unit and/or counseling patient: Coding Diagnoses Calculus of proximal right ureter N20.1 S/P ureteral stent placement Z96.0
[2021-07-26] MEDS: busPIRone 5 MG TAB PO SCH (08:21)
--- NOTE | 2021-07-26 08:22 | Urology Progress Note ---
Date of Service July 26, 2021 Assessment & Plan (1) Hydronephrosis with renal and ureteral calculus obstruction: Plan: stable after cysto/stent yesterday - plan for d/c home today - outpt f/u for definitive stone treatment Admission and Anticipated Discharge Date Admission Date: July 25, 2021 Subjective Doing ok better for most of the night, but some urgency and frequency this AM no fevers decreased WBC Cr stable Results & Data ([facility]) Vital Signs (Past 12 Hours) Vital Signs Temp Pulse Resp BP Pulse Ox 07/26/21 07:40 36.8 C 84 16 128/82 94 07/26/21 03:00 36.7 C 73 16 135/69 92 07/25/21 23:26 36.8 C 65 16 126/70 93 PG Care Time/CCT Total # of Minutes Spent Total Time Spent with Patient: Total time spent is greater than 50% in coordination of care (as documented) at patient's floor/unit and/or counseling patient: Coding Level of Care Code 90241 Subseq Hosp Care Lvl 2 Diagnoses Hydronephrosis with renal and ureteral calculus obstruction N13.2
[2021-07-26 08:26] LABS: Estimated Average Glucose 91 mg/dl; Hemoglobin A1C 4.8 % (4.5-5.6)
[2021-07-26] MEDS ORDERED: PANTOprazole 40 MG TAB PO SCH (09:00)
[2021-07-26] MEDS ORDERED: CITALOPRAM 20 MG TAB PO SCH (09:00)
[2021-07-26] MEDS ORDERED: TOPIRAMATE 25 MG PO SCH ×2 (16:30)
--- NOTE | 2021-07-26 16:31 | Electrocardiogram Report ---
Test Reason : Blood Pressure : / mmHG Vent. Rate : 045 BPM Atrial Rate : 045 BPM P-R Int : 146 ms QRS Dur : 096 ms QT Int : 426 ms P-R-T Axes : 037 -10 -08 degrees QTc Int : 368 ms Sinus bradycardia Nonspecific T wave abnormality Abnormal ECG No previous ECGs available Confirmed by Avery Larios ([id number]) on 07/26/2021 4:31:32 PM Referred By: REFERRED SELF Confirmed By:Avery Larios
--- NOTE | 2021-07-26 17:16 | Discharge Summary ---
Date of Service July 26, 2021 Admission HPI Per Admitting Provider This is a 36-year-old male who has significant past medical history of nephrolithiasis, depression with anxiety, trigeminal neuralgia status post surgical cranial nerve decompression, insomnia, GERD who presents to ED secondary to right flank pain that started at 1:45 AM. He states over the past 2 to 3 days he felt, "off." He tends to get a sensation prior to having a kidney stone and therefore started taking Flomax for the past 2 to 3 days. Last evening he started to develop some discomfort in his right flank and unfortunately got awoken at approximately 145 with severe right flank pain radiating to his right testicle. He describes pain as sharp, nothing makes better, nothing makes worse, compared to prior kidney stone pain and is associated with nausea and vomiting. He had 2-3 episodes of vomiting in route to ER. He did receive IV hydromorphone and Toradol in ED and states this improved his pain minimally. Currently pain is a 7 out of 10. He complains of chills but denies fever or sweats. He denies lightheadedness, dizziness, chest pain, shortness of breath, cough, dysuria, hematuria, increased urgency or frequency with urination, melena or hematochezia. He does complain of decreased urinary frequency and tends to have loose bowels. He does have prior history of kidney stone requiring ESWL. He states his prior kidney stone was not analyzed due to inability to obtain proper sample. In ED patient remained hemodynamically stable. Lab work notable for mild leukocytosis at 10.98k, mild elevation of creatinine 1.25 urinalysis consistent with microscopic hematuria, proteinuria, trace leukocyte esterase and negative bacteria. CT abdomen pelvis revealed a 6 mm obstructing calculus in the right proximal ureter resulting in mild to moderate right hydronephrosis. He received IVF and IV analgesia while in ED. Admission Exam Per Admitting Provider Constitutional: WD/WN, m< vitals as above, NAD, sitting up in bed, pleasant, conversing easily Head: Normocephalic, Atraumatic Eyes: PERRL, conjunctivae normal, anicteric sclerae ENMT: external ear and nose normal, oropharynx normal Neck: trachea midline, no thyromegaly normal visual inspection Respiratory: normal respiratory effort, lungs clear to auscultation, no wheeze, rales, rhonchi. Normal insp/exp effort, no accessory muscle use Cardiovascular: RRR, no murmur, no edema Vessels: no JVD or carotid bruit Chest: normal inspection of chest Abdomen: normal bowel sounds, soft, nontender, no hepatosplenomegaly Musculoskeletal: no cyanosis or clubbing, extremities motor strength 5/5 Skin: +tattoos, no rashes, warm and dry normal turgor Neurologic: PERRL, EOMI, accommodation nl, no face palsy, no dysarthria CN's II-XI intact bilaterally and moves all extremities Psychiatric: A+Ox3, euthymic affect Lymphatic: no cervical or axillary lymphadenopathy : deferred Principal Diagnosis Obstructing right ureteral renal calculi with hydroureteronephrosis Discharge Exam Constitutional WD/WN, vitals as above Respiratory normal respiratory effort, lungs clear to auscultation Cardiovascular Rate/Rhythm: regular rate and regular rhythm Vessels: normal peripheral pulses Extremities: no edema Gastrointestinal (Abdomen) Percussion/Palpation: abdomen soft; abdomen nontender Skin no rashes, warm and dry Neurologic no focal motor deficits Psychiatric A+Ox3, euthymic affect Genitourinary no CVA tenderness Discharge Data Allergies Allergy/AdvReac Type Severity Reaction Status Date / Time Penicillins Allergy Intermediate HIVES Verified 07/25/21 07:52 milk AdvReac Intermediate intolerance Verified 07/25/21 07:52 codeine AdvReac Mild N/V Verified 07/25/21 07:52 Consultations Urology Procedures Performed Operation Date: 07/25/21 14:15 Actual Procedures p Cystoscopy, Right Ureteral Stent Insertion(Right) - Dion Muir MD Ordered Studies 07/25/2021 CT ABD/pelvis IMPRESSION: 1. There is a 6 mm obstructing calculus in the right proximal ureter. This causes mild to moderate right hydroureteronephrosis. 2. Additional nonobstructing renal calculi are seen bilaterally. 3. Additional findings as above. Hospital Course (1) Hydronephrosis with renal and ureteral calculus obstruction: (2) Renal colic: This is a 36-year-old male who has significant past medical history of nephrolithiasis, depression with anxiety, trigeminal neuralgia status post surgical cranial nerve decompression, insomnia, GERD who presents to ED secondary to right flank pain. 6 mm obstructing calculus in right proximal ureter resulting in mild to moderate right hydroureteronephrosis Renal colic Patient was admitted to the medical unit and urology was consulted. S/p cystoscopy and right ureteral stent placement on 07/25/2021 UA without evidence of infection, patient afebrile Will need outpatient follow-up with urology for definitive stone treatment Continue Flomax Discharged on a short course of oxycodone for pain Depression with anxiety Insomnia Continue BuSpar, citalopram and trazodone Mood stable Migraine Appetite suppression Currently on Topamax and phentermine Total Time Total Time Spent Total Time Spent (In Minutes): 35 Discharge Plan Discharge Items Patient Disposition: Home - Self-Care Reason For Visit: RENAL CALCULI Discharge Diagnosis: Right ureteral stone status post cystoscopy and stent placement Condition on Discharge: Good Activity: Resume your previous activity Non-emergency contact: Primary Care Provider Call non-emergency contact if: you have any medication questions, your symptoms worsen, your pain is not controlled and you have a fever Follow-up/Referrals: Dion Muir MD [Physician] - 08/10/21 9:00 am Mp Gerardo MD [Primary Care Provider] - 08/01/21 11:00 am Diet: Regular Addtl Attending Provider Instructions: You were admitted to the hospital for a kidney stone. You were seen by urology who placed a stent. Increase your fluid intake. Continue taking Flomax which should help with the discomfort from stent pain. You will also be discharged on oxycodone 5 mg as needed for severe pain. Please use this medication cautiously. Try to drink more fluid. Urology office will reach out to you for follow-up appointment. Please keep follow-up appointment with your PCP. Pending Studies at Discharge: No Stand-Alone Forms: My [facility], Smoking Cessation Medications and DC Order Prescriptions: New oxycodone 5 mg tablet 5 mg PO Q8H PRN (Reason: pain) Qty: 10 RF: 0 Continued tamsulosin [Flomax] 0.4 mg capsule 0.4 mg PO HS Qty: 90 RF: 0 omeprazole 20 mg capsule,delayed release(DR/EC) 20 mg PO QAM RF: 0 Excedrin Extra Strength 250-250-65 mg Tablet 2 tab PO Q6H PRN (Reason: Pain) RF: 0 buspirone 5 mg tablet 5 mg PO BID RF: 0 citalopram 10 mg tablet 10 mg PO DAILY RF: 0 phentermine 15 mg capsule 15 mg PO DAILY RF: 0 trazodone 100 mg tablet 100 mg PO HS RF: 0 Trokendi XR 25 mg capsule,extended release 24hr 25 mg PO DAILY RF: 0 Discharge Orders: Discharge Order (Routine); Ordered 07/26/21 Ordered By: Roscoe Copeland/Other Patient Handouts: Having a Ureteral Stent, Understanding Kidney Stones Admission Data Admit Date/Time: 07/25/21 11:15 Attending Provider: Roscoe Andres Admit Provider: Roscoe Andres Primary Care Provider: Mp Gerardo Other Providers: Anoop Padilla ; Dion Muir Other Interventions: Discharge Summary Assessment (RN) Last Done: 07/26/21 09:48 Supervising Physician Co-Signing Physician Notes Attending addendum: The patient was seen and examined in medical floor He still has some pain and dysuria but denies any other symptom He'll be going home this afternoon On examined No apparent distress at rest Hemodynamically stable Chest-clear to auscultate bilaterally Heart-S1-S2, regular Abdomen-benign Extremities-no edema His labs and imaging studies reviewed Has ureteric stone status post right ureteric stent placement Medically stable to be discharged Agree with assessment and plan agree with assessment and plan as outlined above by Verna Andres
== END 2021-07-26 10:37 | disposition home or self-care (01) | DRG 661 ==
LOC: EDINP 03:57 → ED 03:57 → 3N 11:06
DX: F41.8 Other specified anxiety disorders; Z88.5 Allergy status to narcotic agent; G43.909 Migraine, unspecified, not intractable, without status migrainosus; K21.9 Gastro-esophageal reflux disease without esophagitis; Z88.0 Allergy status to penicillin; G47.00 Insomnia, unspecified; G50.0 Trigeminal neuralgia; N13.2 Hydronephrosis with renal and ureteral calculous obstruction; Z83.3 Family history of diabetes mellitus; F17.290 Nicotine dependence, other tobacco product, uncomplicated; Z79.82 Long term (current) use of aspirin